=== PATIENT | female | born 1950 | race Caucasian/White ===

== ENCOUNTER 2017-11-21 17:42 | Observation (INO) ==
[2017-11-21] MEDS ORDERED: Nitroglycerin 0.4 MG TAB.SUBL SL ONE (18:25)
[2017-11-21] MEDS ORDERED: Aspirin 81 MG TAB.CHEW PO ONE (18:25)
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
[2017-11-21 18:45] LABS: Basophils % 0.5 %; Eosinophils # 0.2 K/mcL (0.0-0.6); Eosinophils % 2.9 %; Hematocrit 43.4 % (35.3-44.9); Hemoglobin 14.3 g/dL (11.5-15.4); Immature Granulocytes % 0.2 % (0-4); Lymphocytes # 3.8 K/mcL (0.6-4.6); Lymphocytes % 46.3 %; Mean Corpuscular HGB Conc 32.9 g/dL (31.6-35.5); Mean Corpuscular Hemoglobin 28.4 pg (28.0-33.3); Mean Corpuscular Volume 86.3 fL (83.0-100.0); Mean Platelet Volume 10.4 fL (9.4-12.4); Monocytes # 0.6 K/mcL (0.0-1.3); Monocytes % 7.1 %; Neutrophils # 3.5 K/mcL (1.6-8.9); Platelet Count 241 K/mcL (140-400); Red Blood Count 5.03 M/mcL (3.82-4.97)
[2017-11-21 18:51] LABS: Prothrombin Time 10.2 Seconds (9.4-12.1)
[2017-11-21 18:53] LABS: Activated Partial Thrombo Time 30.6 Seconds (26.0-36.0)
[2017-11-21 19:33] LABS: BUN/Creatinine Ratio 16 (6-26); Blood Urea Nitrogen 12 mg/dL (8-23); Calcium 11.7 mg/dL (8.6-10.3); Carbon Dioxide 25 mEq/L (23-29); Chloride 104 mEq/L (98-107); Glucose 100 mg/dL (70-105); Osmolality,Calculated 284 (280-300); Sodium 137 mEq/L (136-145); eGFR For African Americans > 60 (> 60); eGFR For Non-African Americans > 60 (> 60)
--- NOTE | 2017-11-21 20:07 | Emergency Department Note ---
Disposition Clinical Impression: Chest pain Qualifiers: Chest pain type: other chest pain Qualified Code(s): R07.89 - Other chest pain Disposition: Admitted As Inpatient Condition: Good Time of Disposition: 20:41 General Adult HPI - General Chief complaint: ED Chest Pain Stated complaint: CP Time Seen by Provider: 11/21/17 17:44 Source: patient Mode of arrival: ambulatory Limitations: no limitations Nursing Notes Reviewed: Yes - History of Present Illness Pain Scale: 0 - Related Data Home Medications Medication Instructions Recorded Confirmed Aspirin Enteric Coated [Aspirin EC] 81 mg PO DAILY 11/21/17 11/21/17 Calcium Carbonate [Calcium] 600 mg PO DAILY 11/21/17 11/21/17 Cholecalciferol (Vitamin D3) 4,000 unit PO DAILY 11/21/17 11/21/17 [Vitamin D3] Cyanocobalamin (Vitamin B-12) 5,000 mcg PO DAILY 11/21/17 11/21/17 [Vitamin B-12] Glucosamine Sulfate Dipot Chlr 4,000 mg PO DAILY 11/21/17 11/21/17 [Glucosamine] Omeprazole [PriLOSEC] 20 mg PO DAILY PRN 11/21/17 11/21/17 Allergies Allergy/AdvReac Type Severity Reaction Status Date / Time Sulfa (Sulfonamide Allergy Anaphylaxis Verified 10/09/15 09:52 Antibiotics) tetanus and diphtheria Allergy Anaphylaxis Verified 10/09/15 09:52 toxoids [Tetanus&Diphtheria Toxoid] Past Medical History - Past Medical History Medical history: Reports: arthritis, cancer Surgical history: Reports: colectomy Psychiatric history: Reports: anxiety, depression - Social History Smoking Status: Never smoker Alcohol use: Reports: none Drug use: Reports: none Physical Exam - General Limitations: no limitations General appearance: alert, in no apparent distress Course - Reevaluation(s) Reevaluation #1: Patient was signed out to myself and Dr. Cruz from the day team of Dr. Wright and Dr. Javier. Please see their documentation for detailed history and physical exam. Time: 19:00 Vital Signs Temperature 97.5 F L 11/21/17 18:43 Pulse Rate 60 11/21/17 18:43 Respiratory Rate 18 11/21/17 18:43 Blood Pressure 147/88 11/21/17 18:43 O2 Sat by Pulse Oximetry 95 11/21/17 18:43 Temperature 97.5 F L 11/21/17 18:43 Pulse Rate 64 11/21/17 21:07 Respiratory Rate 16 11/21/17 22:22 Blood Pressure 136/86 11/21/17 22:22 O2 Sat by Pulse Oximetry 96 11/21/17 21:07 Oxygen Delivery Oxygen Delivery Room Air Medical Decision Making - MDM Narrative Medical decision making narrative: Due to patient presented with chest pain. Obtained a cardiac workup. Her troponin was negative her EKG showed a sinus bradycardia and the remainder of her laboratory testing was unremarkable. Due to the patient's age and presenting history and feel that the patient will need to be admitted to the hospital for further evaluation and management and ACS rule out. I will consult the hospitalist and they have excepted the patient to her service. The patient will be admitted to the hospital this time for further evaluation and management. - Lab Data Lab results reviewed: Yes I reviewed the patient's lab results. Result diagrams: 11/21/17 17:55 11/21/17 17:55 Lab Results 11/21/17 11/21/17 11/21/17 Range/Units 17:55 17:55 17:55 WBC 8.2 (4.3-11.1) K/mcL RBC 5.03 H (3.82-4.97) M/mcL Hgb 14.3 (11.5-15.4) g/dL Hct 43.4 (35.3-44.9) % MCV 86.3 (83.0-100.0) fL MCH 28.4 (28.0-33.3) pg MCHC 32.9 (31.6-35.5) g/dL RDW 13.0 (11.5-14.5) % Plt Count 241 (140-400) K/mcL MPV 10.4 (9.4-12.4) fL Immature Gran % 0.2 (0-4) % Seg Neutrophils % 43.0 % Lymphocytes % 46.3 % Monocytes % 7.1 % Eosinophils % 2.9 % Basophils % 0.5 % Neutrophils # 3.5 (1.6-8.9) K/mcL Lymphocytes # 3.8 (0.6-4.6) K/mcL Monocytes # 0.6 (0.0-1.3) K/mcL Eosinophils # 0.2 (0.0-0.6) K/mcL Basophils # 0.0 (0.0-0.2) K/mcL PT 10.2 (9.4-12.1) Seconds INR 1.0 APTT 30.6 (26.0-36.0) Seconds Sodium 137 (136-145) mEq/L Potassium 4.0 (3.5-5.1) mEq/L Chloride 104 (98-107) mEq/L Carbon Dioxide 25 (23-29) mEq/L BUN 12 (8-23) mg/dL Creatinine 0.76 (0.60-1.20) mg/dL Est GFR ( Amer) > 60 (> 60) Est GFR (Non-Af Amer) > 60 (> 60) BUN/Creatinine Ratio 16 (6-26) Glucose 100 (70-105) mg/dL Calculated Osmolality 284 (280-300) Calcium 11.7 H (8.6-10.3) mg/dL Troponin I (< 0.04) ng/mL 11/21/17 Range/Units 17:55 WBC (4.3-11.1) K/mcL RBC (3.82-4.97) M/mcL Hgb (11.5-15.4) g/dL Hct (35.3-44.9) % MCV (83.0-100.0) fL MCH (28.0-33.3) pg MCHC (31.6-35.5) g/dL RDW (11.5-14.5) % Plt Count (140-400) K/mcL MPV (9.4-12.4) fL Immature Gran % (0-4) % Seg Neutrophils % % Lymphocytes % % Monocytes % % Eosinophils % % Basophils % % Neutrophils # (1.6-8.9) K/mcL Lymphocytes # (0.6-4.6) K/mcL Monocytes # (0.0-1.3) K/mcL Eosinophils # (0.0-0.6) K/mcL Basophils # (0.0-0.2) K/mcL PT (9.4-12.1) Seconds INR APTT (26.0-36.0) Seconds Sodium (136-145) mEq/L Potassium (3.5-5.1) mEq/L Chloride (98-107) mEq/L Carbon Dioxide (23-29) mEq/L BUN (8-23) mg/dL Creatinine (0.60-1.20) mg/dL Est GFR ( Amer) (> 60) Est GFR (Non-Af Amer) (> 60) BUN/Creatinine Ratio (6-26) Glucose (70-105) mg/dL Calculated Osmolality (280-300) Calcium (8.6-10.3) mg/dL Troponin I < 0.03 (< 0.04) ng/mL - Radiology Data Radiology results reviewed: Yes I reviewed the patient's radiology results. Chest X-Ray 11/21/17 18:25 IMPRESSION: No acute process. D/ / Ronnell Nicole MD / Ronnell Nicole MD Interpreting Provider: Ronnell Nicloe MD - EKG Data EKG #1 EKG attestation: Yes I reviewed and interpreted this EKG. EKG results narrative: EKG showed a sinus bradycardia at a rate of 54 beats for neck, NH interval of 120, QRS duration of 100, QTC of 351 with a normal axis. Attestation Statement - Attestation Attestation: I, Dejuan Cruz MD, personally evaluated this patient and discussed their management with the resident physician. I reviewed the resident's note and agree with the documented findings, medical decision making, and plan of care. This patient was signed out at shift change from Dr. Wright and Dr. Javier. Please refer to their notes for complete details of the history and physical examination. Patient presented with a complaint of some chest pain. She had an episode yesterday and another episode today. The pain was in the chest and radiated up into the left side of the neck and left jaw and to the left shoulder and down the left arm. Also some radiation to the back. At shift change patient is awaiting test results and final disposition. On examination patient is a well-developed well-nourished well-appearing elderly female in no acute distress. She is alert and oriented 3. There is no cyanosis or diaphoresis. Chest is nontender to palpation. Breath sounds are clear and equal bilaterally. Heart regular rate and rhythm. Abdomen soft and nontender with normal bowel sounds. No pedal edema. Labs reviewed. Troponin negative. Chest x-ray negative. No acute changes on EKG. The hospitalist, Dr. Paulino, was consulted and accepted admission of the patient.
[2017-11-21] MEDS ORDERED: Acetaminophen 325 MG TABLET PO PRN (21:05)
[2017-11-21] MEDS ORDERED: Ipratropium/Albuterol Neb 3 ML IH PRN (21:05)
[2017-11-21] MEDS ORDERED: Nitroglycerin 0.4 MG TAB.SUBL SL PRN (21:05)
[2017-11-21] MEDS ORDERED: Naloxone 0.4 MG/ML INJ IVP PRN (21:07)
[2017-11-21] MEDS ORDERED: traMADol 50 MG TABLET PO PRN (21:07)
[2017-11-21] MEDS ORDERED: *HR* OxyCODONE Immed Rel 5 MG TABLET PO PRN (21:07)
--- NOTE | 2017-11-21 21:14 | Internal Med History&Physical ---
Date of Encounter: 11/21/17 Time of Encounter: 21:12 Assessment and Plan (1) Chest pain Current visit: Yes Status: Acute Continue aspirin, nitroglycerin as needed Check lipid panel, consider statin Stress test for the morning, check troponins, telemetry Omeprazole for GI prophylaxis and Lovenox for DVT prophylaxis. The patient will be admitted for observation. Full code. Time spent on this admission 40 minutes Qualifiers: Chest pain type: other chest pain Qualified Code(s): R07.89 - Other chest pain; R07.8 - Other chest pain (2) Hypercalcemia Current visit: Yes Status: Acute Unclear etiology Stop calcium supplements and vitamin D Check albumin and calcium in the morning, can check ionized calcium Start IV fluids, consider checking PTH and further lab work if not improving (3) Valvular disease Current visit: Yes Status: Acute Check an echocardiogram (4) Osteoarthritis Current visit: Yes Status: Acute Qualifiers: Osteoarthritis location: unspecified site Osteoarthritis type: unspecified Qualified Code(s): M19.90 - Unspecified osteoarthritis, unspecified site Internal Medicine - H&P: HPI Chief complaint: Chest pain Admitted From: Emergency Dept History of present illness: Ms. Julien is a 67 year old female with a past medical history of psoriasis, colon cancer 25 years ago, pulmonary leaking valve, who comes to the emergency room complaining of 2 days of left-sided chest pain that started midsternal and radiated to the left shoulder and left side of the jaw, described as 6 out of 10 in intensity, pressure-like that lasted for about 8 hours since 10 AM this morning. Chest x-ray is unremarkable, EKG shows bradycardia. Troponins are negative and the patient is asymptomatic at the moment. She took 2 baby aspirins at home and ibuprofen that did not help with the pain. Denies any symptoms other than shortness of breath and some nausea. Denies having history of hypertension, hyperlipidemia or diabetes. Past Med Surg Social Fam HX - Past Medical History Medical history: arthritis (Osteoarthritis), cancer (Colon cancer 25 years ago status post colectomy), other (Pulmonary valve pathology (leaking valve, unsure) , back pain, basal cell carcinoma excised from her nose) Psychiatric history: anxiety, depression - Past Surgical History Surgical History: colectomy, other (Bladder surgery) - Social History Smoking Status: Never smoker Alcohol use: none Drug use: none - Additional Family History Additional family history: Mother with colon cancer and heart disease Internal Medicine - H&P: Meds 3 Allergy/AdvReac Type Severity Reaction Status Date / Time Sulfa (Sulfonamide Allergy Anaphylaxis Verified 10/09/15 09:52 Antibiotics) tetanus and diphtheria Allergy Anaphylaxis Verified 10/09/15 09:52 toxoids [Tetanus&Diphtheria Toxoid] All Systems PM: A 10-system review of systems was performed and is negative for pertinent findings except as documented above in the HPI. Review of systems: No symptoms at the moment, other systems out of the 10 reviewed for negative - Constitutional Vitals: Temp Pulse Resp BP Pulse Ox 97.5 F L 94 18 126/72 95 11/21/17 18:43 11/21/17 20:21 11/21/17 20:21 11/21/17 20:21 11/21/17 20:21 General appearance: Present: A&O X 3, obese - Head Head exam: Present: atraumatic, normocephalic - Eye Eye exam: Present: PERRL, conjuntiva pink, sclera anicteric Pupils: Present: PERRL - Neck Neck exam general surgery: Present: supple, trachea midline. Absent: lymphadenopathy - Respiratory Respiratory exam: Present: CTAB. Absent: accessory muscle use, rales, rhonchi, wheezes - Cardiovascular Cardiovascular exam: Present: RRR, +S1, +S2. Absent: diastolic murmur, gallop, rubs, systolic murmur - GI/Abdominal GI/Abdominal exam: Present: normal bowel sounds, soft, no peritoneal signs. Absent: distended, tenderness - Extremities Exam Extremities exam: Present: warm, radial pulses palpable and symmetrical. Absent : calf tenderness, cyanotic, pedal edema - Neurological Exam Neurological exam: Present: CN II-XII intact, oriented X3, no focal deficits. Absent: pronater drift, facial droop, speech deficit - Skin Skin exam: Present: dry, intact Internal Med - H&P Results - Labs CBC & Chem 7: 11/21/17 17:55 11/21/17 17:55 Labs: Short CBC 11/21/17 Range/Units 17:55 WBC 8.2 (4.3-11.1) K/mcL Hgb 14.3 (11.5-15.4) g/dL Hct 43.4 (35.3-44.9) % Plt Count 241 (140-400) K/mcL Neutrophils # 3.5 (1.6-8.9) K/mcL BMP 11/21/17 17:55 Sodium 137 Potassium 4.0 Chloride 104 Carbon Dioxide 25 BUN 12 Creatinine 0.76 Glucose 100 Calcium 11.7 H Cardiac Enzymes 11/21/17 Range/Units 17:55 Troponin I < 0.03 (< 0.04) ng/mL - Impressions ITS Impressions Chest X-Ray 11/21/17 18:25 IMPRESSION: No acute process. D/ / Ronnell Nicole MD / Ronnell Nicole MD Interpreting Provider: Ronnell Nicole MD
[2017-11-21] MEDS ORDERED: 0.9 % Sodium Chloride 1,000 ML IVC SCH (21:15)
[2017-11-21] MEDS: *HR* Enoxaparin 40 MG/0.4 ML SYRINGE SQ SCH (23:55)
[2017-11-22 00:59] LABS: VBG Ionized Calcium 1.46 mmol/L (1.15-1.35); VBG PH 7.33 pH Units (7.32-7.42)
[2017-11-22 05:42] LABS: Hematocrit 40.3 % (35.3-44.9); Mean Corpuscular HGB Conc 32.3 g/dL (31.6-35.5); Mean Corpuscular Volume 86.9 fL (83.0-100.0); Mean Platelet Volume 10.3 fL (9.4-12.4); Platelet Count 200 K/mcL (140-400); Red Blood Count 4.64 M/mcL (3.82-4.97)
[2017-11-22 05:48] LABS: BUN/Creatinine Ratio 14 (6-26); Blood Urea Nitrogen 11 mg/dL (8-23); Calcium 10.1 mg/dL (8.6-10.3); Carbon Dioxide 27 mEq/L (23-29); Chloride 109 mEq/L (98-107); Chol/HDL Ratio 4.1 (0-4.9); Cholesterol 187 mg/dL (< 200); Glucose 104 mg/dL (70-105); HDL Cholesterol 46 mg/dL (40-59); LDL Cholesterol,Calculated 109 mg/dL (0-99); Osmolality,Calculated 288 (280-300); Sodium 139 mEq/L (136-145); Triglycerides 162 mg/dL (< 150); eGFR For African Americans > 60 (> 60); eGFR For Non-African Americans > 60 (> 60)
[2017-11-22] MEDS: *HR* Enoxaparin 40 MG/0.4 ML SYRINGE SQ SCH (05:53)
[2017-11-22] MEDS ORDERED: Regadenoson 0.4 MG/5 ML SYRINGE IVP ONE (06:32)
[2017-11-22] MEDS ORDERED: Aspirin Enteric Coated 325 MG Tablet PO SCH (09:00)
--- NOTE | 2017-11-22 13:14 | Discharge Summary ---
Date of Encounter: 11/22/17 Time of Encounter: 13:10 - Discharge Diagnosis (1) Chest pain Priority: Primary Status: Acute Qualifiers: Chest pain type: other chest pain Qualified Code(s): R07.89 - Other chest pain; R07.8 - Other chest pain (2) Hypercalcemia Priority: Secondary Status: Acute (3) Valvular disease Priority: Secondary Status: Acute (4) Osteoarthritis Priority: Secondary Status: Acute Qualifiers: Osteoarthritis location: unspecified site Osteoarthritis type: unspecified Qualified Code(s): M19.90 - Unspecified osteoarthritis, unspecified site - Discharge Medications Home Medications: Aspirin Enteric Coated [Aspirin EC] 81 mg PO DAILY 11/21/17 [History] Cyanocobalamin (Vitamin B-12) [Vitamin B-12] 5,000 mcg PO DAILY 11/21/17 [ History] Glucosamine Sulfate Dipot Chlr [Glucosamine] 4,000 mg PO DAILY 11/21/17 [History ] Omeprazole [PriLOSEC] 20 mg PO DAILY PRN 11/21/17 [History] Allergies/Adverse Reactions: 3 Allergy/AdvReac Type Severity Reaction Status Date / Time Sulfa (Sulfonamide Allergy Anaphylaxis Verified 10/09/15 09:52 Antibiotics) tetanus and diphtheria Allergy Anaphylaxis Verified 10/09/15 09:52 toxoids [Tetanus&Diphtheria Toxoid] Date of admission: 11/21/17 22:09 Primary care physician: Regan Martin, - Patient Status Disposition: Home, Self-Care Condition: Good - Discharge Instructions Instructions: Chest Pain (DC), Influenza Vaccine (GEN), Hypercalcemia (DC) Follow Up With: Regan Martin, [Primary Care Provider] - 11/29/17 1:45 pm Additional Instructions: Follow-up with primary care physician within the next 7 days. Stop vitamin D and calcium supplements. Can start fish oil at home 1 capsule twice a day to decrease triglycerides, avoid carbohydrates - Diet and Activity Activity: increase activity as tolerated Diet: low fat, low cholesterol Hospital course: Ms. Julien is a 67 year old female with a past medical history of psoriasis, Osteoarthritis), cancer (Colon cancer 25 years ago status post colectomy), other (Pulmonary valve pathology (leaking valve, unsure), back pain, basal cell carcinoma excised from her nose who came to the emergency room complaining of 2 days of left-sided chest pain that started midsternal and radiated to the left shoulder and left side of the jaw, described as 6 out of 10 in intensity, pressure-like that lasted for about 8 hours since 10 AM this morning. Chest x-ray is unremarkable, EKG showed bradycardia. Troponins are negative and the patient is asymptomatic at the moment. She took 2 baby aspirins at home and ibuprofen that did not help with the pain. Denies any symptoms other than shortness of breath and some nausea. Denies having history of hypertension , hyperlipidemia or diabetes. Stress test showed appearance of perfusion defect that might be percent artifact involving the mid distal anterior wall. Pharmacological stress EKG was negative for ischemia. EF more than 70% The patient presented with hypercalcemia of 11.7 and came down to 10.1. Venous denies passing is 1.46, likely secondary to vitamin D and calcium supplements. The patient was advised to stop both and follow up with her primary care physician. Vitamin D level is pending. Patient can follow up with cardiology if the symptoms recur. Echocardiogram showed: Ejection fraction of 60%, with mild diastolic dysfunction and no wall motion abnormalities - Time Spent with Patient Total time spent providing and/or coordinating discharge services: Greater than 30 minutes (40 min) - Constitutional Vitals: Temp Pulse Resp BP Pulse Ox 97.4 F L 68 17 130/68 94 11/22/17 10:35 11/22/17 10:35 11/22/17 10:35 11/22/17 10:35 11/22/17 10:35 General appearance: Present: A&O X 3, obese - Head Head exam: Present: atraumatic, normocephalic - Eye Eye exam: Present: PERRL, conjuntiva pink, sclera anicteric Pupils: Present: PERRL - Neck Neck exam general surgery: Present: supple, trachea midline. Absent: lymphadenopathy - Respiratory Respiratory exam: Present: CTAB. Absent: accessory muscle use, rales, rhonchi, wheezes - Cardiovascular Cardiovascular exam: Present: RRR, +S1, +S2. Absent: diastolic murmur, gallop, rubs, systolic murmur - GI/Abdominal GI/Abdominal exam: Present: normal bowel sounds, soft, no peritoneal signs. Absent: distended, tenderness - Extremities Exam Extremities exam: Present: warm, radial pulses palpable and symmetrical. Absent : calf tenderness, cyanotic, pedal edema - Neurological Exam Neurological exam: Present: CN II-XII intact, oriented X3, no focal deficits. Absent: pronater drift, facial droop, speech deficit - Skin Skin exam: Present: dry, intact
[2017-11-22 14:54] VITALS: BP 121/66
--- NOTE | 2017-11-22 19:39 | Electrocardiograph Report ---
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
== END 2017-11-22 16:50 | disposition home or self-care (01) ==
LOC: EMEROO 17:42 → 3BNU 17:42
PROVIDERS: ADMIT Internal Medicine; ATTEND Registered Nurse

== ENCOUNTER 2019-05-16 08:10 | Observation (INO) ==
[2019-05-16] MEDS ORDERED: Aspirin 81 MG TAB.CHEW PO ONE (08:42)
[2019-05-16 09:12] LABS: Basophils # 0.1 K/mcL (0.0-0.2); Basophils % 0.9 %; Eosinophils # 0.2 K/mcL (0.0-0.6); Eosinophils % 3.1 %; Hematocrit 43.8 % (35.3-44.9); Hemoglobin 14.3 g/dL (11.5-15.4); Immature Granulocytes % 0.3 % (0-4); Lymphocytes % 41.1 %; Mean Corpuscular HGB Conc 32.6 g/dL (31.6-35.5); Mean Corpuscular Hemoglobin 28.5 pg (28.0-33.3); Mean Corpuscular Volume 87.4 fL (83.0-100.0); Mean Platelet Volume 10.7 fL (9.4-12.4); Monocytes # 0.6 K/mcL (0.0-1.3); Monocytes % 7.5 %; Neutrophils # 3.5 K/mcL (1.6-8.9); Platelet Count 202 K/mcL (140-400); Red Blood Count 5.01 M/mcL (3.82-4.97); Segmented Neutrophils % 47.1 %; White Blood Count 7.4 K/mcL (4.3-11.1)
[2019-05-16 09:36] LABS: BUN/Creatinine Ratio 18 (6-26); Blood Urea Nitrogen 15 mg/dL (8-23); Calcium 10.6 mg/dL (8.6-10.3); Carbon Dioxide 25 mEq/L (23-29); Chloride 104 mEq/L (98-107); Glucose 116 mg/dL (70-105); Osmolality,Calculated 292 (280-300); Potassium 4.2 mEq/L (3.5-5.1); Sodium 140 mEq/L (136-145); Troponin I < 0.03 ng/mL (< 0.04); eGFR For African Americans > 60 (> 60); eGFR For Non-African Americans > 60 (> 60)
--- NOTE | 2019-05-16 09:48 | Emergency Department Note ---
Disposition Clinical Impression: Unstable angina pectoris Disposition: Admitted As Inpatient Condition: Fair Time of Disposition: 10:40 Chest Pain HPI - General Chief Complaint: ED Chest Pain Stated Complaint: CP,LAKISHA Time Seen by Provider: 05/16/19 08:33 Source: patient Mode of arrival: ambulatory Limitations: no limitations Vital Signs Reviewed: Yes Nursing Notes Reviewed: Yes - History of Present Illness HPI Narrative: 68-year-old female otherwise healthy no history of hypertension diabetes no smoking presents to the emergency department with chest pain that is radiating up into her neck. Says it is a pressure in the center of her chest going up into her neck describing it as 6 out of 10 worse whenever she exerts herself or moves she also has shortness of breath the same time. Said that she has felt dizzy and almost like she was in a pass out but has not had any syncopal events. Said she has been nauseous but has had no vomiting. This been going on for approximately 1 day continue to get worse and she is does not feel any better. She is worried she may be having some heart problems. Patient is no cardiac history. Otherwise no other complaints at this time. Severity scale (1-10): 3 - Related Data Home Medications Medication Instructions Recorded Confirmed Aspirin Enteric Coated [Aspirin EC] 81 mg PO DAILY 11/21/17 05/16/19 Omeprazole [PriLOSEC] 20 mg PO DAILY PRN 11/21/17 05/16/19 Allergies Allergy/AdvReac Type Severity Reaction Status Date / Time Sulfa (Sulfonamide Allergy Anaphylaxis Verified 01/30/19 21:16 Antibiotics) tetanus and diphtheria Allergy Anaphylaxis Verified 01/30/19 21:16 toxoids [Tetanus&Diphtheria Toxoid] All systems ED: reviewed and negative except as stated. Review of Systems: As Per HPI Chest Pain PMH - Past Medical History Medical history: Reports: non-contributory, arthritis, cancer Surgical history: Reports: non-contributory, other Psychiatric history: Reports: anxiety, depression - Social History Smoking Status: Never smoker Alcohol use: Reports: none Drug use: Reports: none Physical Exam - General Limitations: no limitations General appearance: alert, in no apparent distress - Head Head exam: atraumatic, normocephalic, normal inspection - Eye Eye exam: Present: normal appearance, PERRL, EOMI - ENT ENT exam: normal exam, normal oropharynx, mucous membranes moist - Neck Neck exam: Present: normal inspection, full ROM, trachea midline - Chest Chest inspection: Present: normal inspection, symmetric chest wall rise - Respiratory Respiratory exam: Present: normal lung sounds bilaterally - Cardiovascular Cardiovascular exam: Present: regular rate, normal rhythm, normal heart sounds - Abdominal Exam Abdominal exam: Present: soft, Non-Tender, normal bowel sounds. Absent: tenderness, distention, guarding, rebound, rigidity - Extremities Exam Extremities exam: Present: normal inspection, full ROM. Absent: tenderness, pedal edema - Back Exam Back exam: Present: normal inspection, full ROM. Absent: tenderness, CVA tenderness (R), CVA tenderness (L) - Neurological Exam Neurological exam: Present: alert, oriented X3 - Skin Skin exam: Present: warm, dry, intact, normal color Course Vital Signs Temperature 97.8 F 05/16/19 08:13 Pulse Rate 65 05/16/19 08:13 Respiratory Rate 16 05/16/19 08:13 Blood Pressure 191/82 05/16/19 08:13 O2 Sat by Pulse Oximetry 97 05/16/19 08:13 Temperature 97.8 F 05/16/19 08:13 Pulse Rate 57 05/16/19 10:33 Respiratory Rate 18 05/16/19 10:33 Blood Pressure 134/65 05/16/19 10:33 O2 Sat by Pulse Oximetry 97 05/16/19 10:33 Oxygen Delivery Oxygen Delivery Room Air Chest Pain - MDM Narrative Medical decision making narrative: Labs all came back normal troponin was negative EKG had no acute findings. Chest x-ray also had no acute findings. The troponin was negative did give patient aspirin nitroglycerin. Patient has a heart score of 5. Due to her story a worries because patient needs to be evaluated for possible cardiac evaluation for possible ACS. D-dimer came back negative there is a likelihood of this being a pulmonary embolism at this time. Patient will be admitted to the hospitalist for further evaluation. I spoke with Dr. Carballo who agreed to admit the patient to their service. Patient admitted in stable condition. Chest X-Ray 05/16/19 08:42 IMPRESSION: No acute cardiopulmonary disease. D/ / 05/16/2019 09:11:02 Gavin De Leon MD / Tammy Ritter Interpreting Provider: Gavin De Leon MD - Medical Records Medical records reviewed: Yes I reviewed the patient's medical records. - Lab Data Lab results reviewed: Yes I reviewed the patient's lab results. Result diagrams: 05/16/19 08:32 05/16/19 08:32 Lab Results 05/16/19 05/16/19 05/16/19 Range/Units 08:32 08:32 08:32 WBC 7.4 (4.3-11.1) K/mcL RBC 5.01 H (3.82-4.97) M/mcL Hgb 14.3 (11.5-15.4) g/dL Hct 43.8 (35.3-44.9) % MCV 87.4 (83.0-100.0) fL MCH 28.5 (28.0-33.3) pg MCHC 32.6 (31.6-35.5) g/dL RDW 13.0 (11.5-14.5) % Plt Count 202 (140-400) K/mcL MPV 10.7 (9.4-12.4) fL Immature Gran % 0.3 (0-4) % Seg Neutrophils % 47.1 % Lymphocytes % 41.1 % Monocytes % 7.5 % Eosinophils % 3.1 % Basophils % 0.9 % Neutrophils # 3.5 (1.6-8.9) K/mcL Lymphocytes # 3.0 (0.6-4.6) K/mcL Monocytes # 0.6 (0.0-1.3) K/mcL Eosinophils # 0.2 (0.0-0.6) K/mcL Basophils # 0.1 (0.0-0.2) K/mcL PT 11.0 (9.4-12.1) Seconds INR 1.0 D-Dimer 246 (0-500) ng/mLFEU Sodium 140 (136-145) mEq/L Potassium 4.2 (3.5-5.1) mEq/L Chloride 104 (98-107) mEq/L Carbon Dioxide 25 (23-29) mEq/L BUN 15 (8-23) mg/dL Creatinine 0.82 (0.60-1.20) mg/dL Est GFR ( Amer) > 60 (> 60) Est GFR (Non-Af Amer) > 60 (> 60) BUN/Creatinine Ratio 18 (6-26) Glucose 116 H (70-105) mg/dL Calculated Osmolality 292 (280-300) Calcium 10.6 H (8.6-10.3) mg/dL Troponin I < 0.03 (< 0.04) ng/mL - Radiology Data Radiology results reviewed: Yes I reviewed the patient's radiology results. - EKG Data EKG attestation: Yes I reviewed and interpreted this EKG. Heart Score - Score History: Highly Suspicious EKG: Normal Age: Greater than 65 Risk Factors: 1-2 risk factors Troponin: Less than normal limit HEART Score Total: 5 Attestation Statement - Attestation Attestation: I, Pierre Gutierrez, examined this patient and my medical decision-making was reviewed with the ISSUER/PA/Advanced Practice Nurse/Resident Physician. I agree with the documented findings, disposition and treatment plan as described except to the extent set forth below. 68-year-old female presents emergency Department with concerns of chest pain and difficulty breathing. Patient states symptoms have been present over the past 24-48 hours. She describes it as a pressure in the center of her chest that radiates to her left shoulder and left jaw. She reports associated diaphoresis and nausea and lightheadedness. He should not states she has a history of previous cardiac catheterization many years ago which showed moderate disease but she did not receive cardiac stenting at that time. Patient denies fever, c hills, syncope, abdominal pain, diarrhea. I reviewed the EKG with the resident and agree with the interpretation. Initial troponin negative. Patient will be admitted to the hospitalist for further care and evaluation.
[2019-05-16] MEDS: Nitroglycerin 0.4 MG TAB.SUBL SL PRN ×3 (10:19→10:34)
[2019-05-16] MEDS ORDERED: Naloxone 0.4 MG/ML INJ IVP PRN (10:42)
[2019-05-16] MEDS ORDERED: traMADol 50 MG TABLET PO PRN (10:42)
--- NOTE | 2019-05-16 13:07 | Internal Med History&Physical ---
Date of Encounter: 05/16/19 Time of Encounter: 12:59 Internal Medicine - H&P: HPI Chief complaint: chest discomfort Admitted From: Home Plans for Post Hospital Care: Home History of present illness: Ms. Julien is a 68 year old female past medical history of psoriasis, Osteoarthritis), cancer (Colon cancer 25 years ago status post colectomy), back pain, basal cell carcinoma excised from her nose. Who came to the emergency room complaining of 2 days of intermittent retro-sternal 5/10 chest pain radiating to the left shoulder and left side of the jaw associated with tingling of the left upper extremities. Denies aggravating or alleviating factors. Reported last night while she was sleeping started having the same discomfort and decided to come to the ED. Reports the pain was relieved by some medications she got in the ED. Patient also reported having one episode of dizziness which she described as the room spinning around yesterday, associated with nausea, but no vomiting episodes. She also reported tingling on the left upper extremity, but denies focal weakness or change in her speech. denies abdominal pain, GERD like symptoms. Past Med Surg Social Fam HX - Past Medical History Medical history: non-contributory, arthritis, cancer Psychiatric history: anxiety, depression - Past Surgical History Surgical History: non-contributory, other Additional surgical history: colon mass removed, bladder lift - Social History Smoking Status: Never smoker Smokeless Tobacco Status: No Alcohol use: none Drug use: none - Family History Mother Living Status: Hx Family Cardiac Disorders: Yes Hx Family Cancer: Yes (colon) Father Living Status: Internal Medicine - H&P: Meds Aspirin Enteric Coated [Aspirin EC] 81 mg PO DAILY 11/21/17 [History] Omeprazole [PriLOSEC] 20 mg PO DAILY PRN 11/21/17 [History] Allergy/AdvReac Type Severity Reaction Status Date / Time Sulfa (Sulfonamide Allergy Anaphylaxis Verified 01/30/19 21:16 Antibiotics) tetanus and diphtheria Allergy Anaphylaxis Verified 01/30/19 21:16 toxoids [Tetanus&Diphtheria Toxoid] All Systems PM: A 10-system review of systems was performed and is negative for pertinent findings except as documented above in the HPI. - Constitutional Constitutional: no chills, no fever(s), no weakness - EENT Eyes: no change in vision, no pain - Cardiovascular Cardiovascular ROS IM: chest pain, no dyspnea on exertion, no irregular heart rhythm, no lightheadedness, no orthopnea, no palpitations, no paroxysmal nocturnal dyspnea - Respiratory Respiratory: no cough - Gastrointestinal Gastrointestinal: nausea, no abdominal pain, no vomiting - Genitourinary Genitourinary: no dysuria, no urinary urgency - Musculoskeletal Musculoskeletal ROS IM: no arthralgias - Integumentary Integumentary IM: no erythema - Neurological Neurological ROS: no headache(s) - Psychiatric Psychiatric: no hallucinations, no irritability - Endocrine Endocrine IM: no cold intolerance, no excessive sweating - Hematologic/Lymphatic Hematologic/Lymphatic: no lymphadenopathy - Allergic/Immunologic Allergic/Immunologic: no GI upset with certain foods - Constitutional Vitals: Temp Pulse Resp BP Pulse Ox 98.2 F 62 16 165/68 99 05/16/19 11:32 05/16/19 11:32 05/16/19 11:32 05/16/19 11:32 05/16/19 11:32 Exam: Vitals: Reviewed. General: Alert and oriented x4. In no distress Cardiovascular: RRR, normal S1 & S2, no rubs, murmurs or gallops. Lungs: CTA b/l, no wheezes or crackles. Abdomen: Soft, non-tender, no rigidity. Extremities: No edema. Strength is 5/5 in the upper and lower extr Neurological: CN II-XII intact. No focal neurological deficits. Rest of the physical exam is non contributory Internal Med - H&P Results - Labs CBC & Chem 7: 05/16/19 08:32 05/16/19 08:32 Labs: Short CBC 05/16/19 Range/Units 08:32 WBC 7.4 (4.3-11.1) K/mcL Hgb 14.3 (11.5-15.4) g/dL Hct 43.8 (35.3-44.9) % Plt Count 202 (140-400) K/mcL Neutrophils # 3.5 (1.6-8.9) K/mcL BMP 05/16/19 08:32 Sodium 140 Potassium 4.2 Chloride 104 Carbon Dioxide 25 BUN 15 Creatinine 0.82 Glucose 116 H Calcium 10.6 H Cardiac Enzymes 05/16/19 05/16/19 Range/Units 08:32 10:55 Troponin I < 0.03 < 0.03 (< 0.04) ng/mL - Impressions ITS Impressions Chest X-Ray 05/16/19 08:42 IMPRESSION: No acute cardiopulmonary disease. D/ / 05/16/2019 09:11:02 Gavin De Leon MD / Tammy Ritter Interpreting Provider: Gavin De Leon MD - Diagnostic Studies Chest x-ray Status: image reviewed by me (no acute findings) - Assessment and Plan (1) Chest pain Current Visit: No Status: Acute Assessment and plan: patient presenting with chest pain, radiating to her jaw and associated with nausea. Plan Serial troponin EKG Nitroglycerin 0.5 sublingual 3 every 15 minute when necessary Aspirin 81 mg by mouth daily Telemetry monitoring Patient would benefit from inpatient vs outpatient Cardiology consult ELISEO and stress test ordered. Qualifiers: Chest pain type: other chest pain Qualified Code(s): R07.89 - Other chest pain; R07.8 - Other chest pain (2) DVT prophylaxis Current Visit: Yes Status: Acute Assessment and plan: started on heparin subQ (3) Hypercalcemia Current Visit: No Status: Acute Assessment and plan: unclear etiology. will start patient on gentle hydration. - Time Spent With Patient Total time spent is greater than 50% in coordination of care (as documented) at patient's floor/unit and/or counseling patient: Greater than 35 minutes (40)
[2019-05-16] MEDS: *HR* Heparin 5,000 UNIT/ML VIAL SQ SCH ×2 (13:14→21:11)
[2019-05-16] MEDS: Aspirin Enteric Coated 81 MG Tablet PO SCH (13:15)
[2019-05-16] MEDS ORDERED: Perflutren Lipid Microsphere 1.3 ML in 0.9 % Sodium Chloride 8.7 ML IVP ONE (19:10)
[2019-05-17] MEDS ORDERED: Regadenoson 0.4 MG/5 ML SYRINGE IVP ONE (06:31)
[2019-05-17] MEDS: *HR* Heparin 5,000 UNIT/ML VIAL SQ SCH ×3 (06:39→20:37)
[2019-05-17 07:00] LABS: Basophils # 0.1 K/mcL (0.0-0.2); Basophils % 0.7 %; Eosinophils # 0.2 K/mcL (0.0-0.6); Eosinophils % 2.9 %; Hematocrit 45.9 % (35.3-44.9); Hemoglobin 14.9 g/dL (11.5-15.4); Immature Granulocytes % 0.5 % (0-4); Lymphocytes # 3.6 K/mcL (0.6-4.6); Lymphocytes % 44.7 %; Mean Corpuscular HGB Conc 32.5 g/dL (31.6-35.5); Mean Corpuscular Hemoglobin 28.9 pg (28.0-33.3); Mean Platelet Volume 10.6 fL (9.4-12.4); Monocytes # 0.5 K/mcL (0.0-1.3); Monocytes % 5.9 %; Neutrophils # 3.7 K/mcL (1.6-8.9); Platelet Count 235 K/mcL (140-400); Red Blood Count 5.16 M/mcL (3.82-4.97); Red Cell Distribution Width 13.1 % (11.5-14.5); Segmented Neutrophils % 45.3 %; White Blood Count 8.1 K/mcL (4.3-11.1)
[2019-05-17 07:27] LABS: BUN/Creatinine Ratio 15 (6-26); Blood Urea Nitrogen 13 mg/dL (8-23); Calcium 10.5 mg/dL (8.6-10.3); Carbon Dioxide 25 mEq/L (23-29); Chloride 101 mEq/L (98-107); Cholesterol 227 mg/dL (< 200); Glucose 115 mg/dL (70-105); Magnesium 2.5 mg/dL (1.6-2.6); Osmolality,Calculated 299 (280-300); Phosphorous 3.4 mg/dL (2.7-4.5); Potassium 4.3 mEq/L (3.5-5.1); Sodium 144 mEq/L (136-145); Triglycerides 179 mg/dL (< 150); eGFR For African Americans > 60 (> 60); eGFR For Non-African Americans > 60 (> 60)
[2019-05-17 08:28] LABS: Chol/HDL Ratio 4.3 (0-4.9); HDL Cholesterol 53 mg/dL (40-59); LDL Cholesterol,Calculated 138 mg/dL (0-99)
[2019-05-17] MEDS: Aspirin Enteric Coated 81 MG Tablet PO SCH (09:48)
[2019-05-17 11:02] LABS: C-Reactive Protein < 5 mg/L (Less than 10)
--- NOTE | 2019-05-17 11:04 | Internal Med Progress Note ---
Hospitalist Progress Note - Encounter Date of Encounter: 05/17/19 Time of Encounter: 11:02 - Subjective Interval History: Ms. Julien is a 68 year old female past medical history of psoriasis, Osteoarthritis, cancer (Colon cancer 25 years ago status post colectomy), back pain, basal cell carcinoma excised from her nose who came to the emergency room complaining of 2 days of intermittent retro-sternal 5/10 chest pain radiating to the left shoulder and left side of the jaw associated with tingling of the left upper extremities. Patient seen and examined in the room., She reported chest pain has resolved after taking nitroglycerin. Currently she reported absence of shortness of breath, cough, sputum production, palpitation, lightheadedness, and the syncope. - Exam Vitals: Temp Pulse Resp BP Pulse Ox 97.9 F 65 14 152/78 95 05/17/19 06:26 05/17/19 06:26 05/17/19 06:26 05/17/19 06:26 05/17/19 06:26 Exam: Vitals: Reviewed. General: Alert and oriented x4. In no distress Cardiovascular: RRR, normal S1 & S2, no rubs, murmurs or gallops. Lungs: CTA b/l, no wheezes or crackles. Abdomen: Soft, non-tender, no rigidity. Extremities: No edema. Strength is 5/5 in the upper and lower extr Neurological: CN II-XII intact. No focal neurological deficits. Rest of the physical exam is non contributory - Assessment and Plan (1) Chest pain Current Visit: No Status: Acute Assessment and Plan: 05/16 patient presenting with chest pain, radiating to her jaw and associated with nausea. Plan Serial troponin EKG Nitroglycerin 0.5 sublingual 3 every 15 minute when necessary Aspirin 81 mg by mouth daily Telemetry monitoring Patient would benefit from inpatient vs outpatient Cardiology consult ELISEO and stress test ordered. 05/17 Patient reported resolution of chest pain after ingestion of nitroglycerin. Serial troponin was negative, EKG has no acute ST-T change, overnight telemetry chest and was reviewed, there is no acute ST-T changes as well. Echocardiogram and a stress test completed, pending results. (2) Hypercalcemia Current Visit: No Status: Acute Assessment and Plan: unclear etiology. Hypocalcemia symptoms chronic which was recorded in October 2017. She also had elevated vitamin D level back in 2018. We will start workup for hyperglycemia which will include TSH, PTH, PTH related peptide, repeat a vitamin D level, and the thyroid ultrasound. We will continue IV hydration currently, continue monitoring calcium level. (3) DVT prophylaxis Current Visit: Yes Status: Acute Assessment and Plan: started on heparin subQ - Time Spent with Patient Total time spent is greater than 50% in coordination of care (as documented) at patient's floor/unit and/or counseling patient: Greater than 35 minutes Plan of Care Discussed with: patient Internal Medicine: Result - Labs CBC & Chem 7: 05/17/19 05:56 05/17/19 05:56 Labs: Short CBC 05/17/19 Range/Units 05:56 WBC 8.1 (4.3-11.1) K/mcL Hgb 14.9 (11.5-15.4) g/dL Hct 45.9 H (35.3-44.9) % Plt Count 235 (140-400) K/mcL Neutrophils # 3.7 (1.6-8.9) K/mcL BMP 05/17/19 05:56 Sodium 144 Potassium 4.3 Chloride 101 Carbon Dioxide 25 BUN 13 Creatinine 0.86 Glucose 115 H Calcium 10.5 H Cardiac Enzymes 05/16/19 05/16/19 05/16/19 Range/Units 10:55 16:20 22:22 Troponin I < 0.03 < 0.03 < 0.03 (< 0.04) ng/mL - ABG Interpretation ABG results: PT/INR, D-dimer PT 11.0 Seconds (9.4-12.1) 05/16/19 08:32 D-Dimer 246 ng/mLFEU (0-500) 05/16/19 08:32 - Impressions Impressions Echocardiogram 05/16/19 10:44 Impressions: LVEF 60%. Mild left ventricular diastolic dysfunction. Normal right ventricular structure and function. Mild tricuspid regurgitation. No pulmonary hypertension. Left Ventricular Wall Motion: Rest Echo Findings All wall segments showed normal motion. Findings: Study Quality * Technically adequate exam. ECG Findings * Normal sinus rhythm. Left Ventricle * LVEF 60%. * Normal LV chamber size, wall thickness and function. * Mild left ventricular diastolic dysfunction. Right Ventricle * Normal right ventricular structure and function. Left Atrium * Normal left atrial size. Right Atrium * Normal right atrial size. Aortic Valve * No aortic regurgitation. * Trileaflet aortic valve. * No aortic stenosis. Mitral Valve * No mitral regurgitation. * Normal mitral valve structure. * No mitral stenosis. Tricuspid Valve * Tricuspid valve not well visualized. * Mild tricuspid regurgitation. * Estimated RA pressure is 3 mmHg. * Estimated RVSP is 31 mmHg. * No pulmonary hypertension. Pulmonic Valve * Pulmonic valve is not well visualized. * No pulmonic stenosis. * No pulmonic regurgitation. Pulmonary Artery * Pulmonary artery not well visualized. Aorta * Normally sized aortic root. Pericardium * There is no pericardial effusion present. Interatrial Septum * Interatrial septum not well evaluated. IVC * Normal IVC dimensions and inspiratory collapse. Consult Discharge Plan - Plan Referrals: Regan Martin DO [Primary Care Provider] - 05/24/19 8:00 am (1) Chest pain Qualifiers: Chest pain type: other chest pain Qualified Code(s): R07.89 - Other chest pain; R07.8 - Other chest pain
[2019-05-17 11:15] LABS: Thyroid Stimulating Hormone 2.201 mcIU/mL (0.340-5.600)
--- NOTE | 2019-05-17 13:29 | Electrocardiograph Report ---
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
[2019-05-18 04:48] LABS: BUN/Creatinine Ratio 19 (6-26); Blood Urea Nitrogen 16 mg/dL (8-23); Calcium 10.5 mg/dL (8.6-10.3); Carbon Dioxide 24 mEq/L (23-29); Chloride 107 mEq/L (98-107); Glucose 126 mg/dL (70-105); Osmolality,Calculated 289 (280-300); Potassium 3.8 mEq/L (3.5-5.1); Sodium 138 mEq/L (136-145); eGFR For African Americans > 60 (> 60); eGFR For Non-African Americans > 60 (> 60)
[2019-05-18] MEDS: *HR* Heparin 5,000 UNIT/ML VIAL SQ SCH (05:26)
[2019-05-18 07:40] VITALS: BP 117/78
--- NOTE | 2019-05-18 09:07 | Discharge Summary ---
- NOTES TO OUTPATIENT PROVIDER Notes to Outpatient Provider: f/u with endocrinology within a month. f/u with PCP within a month. Orders not resulted at time of discharge: Pending orders 05/17/19 07:30 NM monique perf SPECT multi [NM] Routine 05/17/19 10:24 Parathormone Related Peptide Routine Vitamin D-1,25(reference test) Routine Date of Encounter: 05/18/19 Time of Encounter: 09:05 - Discharge Diagnosis (1) Chest pain Priority: Primary Status: Acute Qualifiers: Chest pain type: other chest pain Qualified Code(s): R07.89 - Other chest pain; R07.8 - Other chest pain (2) Hypercalcemia Priority: Primary Status: Acute (3) Primary hyperparathyroidism Priority: Primary Status: Acute (4) DVT prophylaxis Priority: Primary Status: Acute Hospital course: Ms. Julien is a 68 year old female past medical history of psoriasis, Osteoarthritis), cancer (Colon cancer 25 years ago status post colectomy), back pain, basal cell carcinoma excised from her nose, who came to the emergency room complaining of 2 days of intermittent retro-sternal 5/10 chest pain radiating to the left shoulder and left side of the jaw associated with tingling of the left upper extremities. Denies aggravating or alleviating factors. Reported last night while she was sleeping started having the same discomfort and decided to come to the ED. Reports the pain was relieved by some medications she got in the ED. Patient also reported having one episode of dizziness which she described as the room spinning around yesterday, associated with nausea, but no vomiting episodes. She also reported tingling on the left upper extremity, but denies focal weakness or change in her speech. denies abdominal pain, GERD like symptoms. Serial troponin was negative, EKG has no acute ST-T change, telemetry tracing was reviewed which showed no acute ischemic change. Patient underwent a stress test which was also negative for ischemia or infarct. Her lab test revealed elevated calcium level, vitamin D and PTH level. Ultrasound of her thyroid no nodule or mass. Primary hyper-parathyroidism was diagnosed, patient was instructed to and maintain well hydration, take Sensipar as prescribed, follow up with PCP and endocrinology as scheduled. On the discharge today, patient has no chest pain, her vital signs were stable, as were labs. She is discharged home today. Discharge discussed with: patient Time spent discussing smoking cessation with patient: more than 10 minutes - Time Spent with Patient Total time spent providing and/or coordinating discharge services: Time spent: Greater than 30 minutes - Discharge Medications Prescriptions: New Atorvastatin [Lipitor] 40 mg PO HS #30 tablet Cinacalcet [Sensipar] 30 mg PO DAILY #30 tablet Continued Aspirin Enteric Coated [Aspirin EC] 81 mg PO DAILY Omeprazole [PriLOSEC] 20 mg PO QAM PRN PRN Reason: Heartburn Mv,Ca,Min/Folic Acid/Vit K1 [One-A-Day Women's 50 Plus Tab] 1 tab PO QAM Home Medications: Aspirin Enteric Coated [Aspirin EC] 81 mg PO DAILY 11/21/17 [History] Omeprazole [PriLOSEC] 20 mg PO QAM PRN 11/21/17 [History] Mv,Ca,Min/Folic Acid/Vit K1 [One-A-Day Women's 50 Plus Tab] 1 tab PO QAM 05/17/19 [History] Atorvastatin [Lipitor] 40 mg PO HS #30 tablet 05/18/19 [Rx] Cinacalcet [Sensipar] 30 mg PO DAILY #30 tablet 05/18/19 [Rx] Allergies/Adverse Reactions: Allergy/AdvReac Type Severity Reaction Status Date / Time Sulfa (Sulfonamide Allergy Anaphylaxis Verified 05/17/19 14:16 Antibiotics) tetanus and diphtheria Allergy Anaphylaxis Verified 05/17/19 14:16 toxoids [Tetanus&Diphtheria Toxoid] Date of admission: 05/16/19 10:54 Primary care physician: Regan Martin DO Anticipated date of discharge: 05/18/19 - Constitutional Vitals: Temp Pulse Resp BP Pulse Ox 97.6 F 54 16 117/78 95 05/18/19 07:39 05/18/19 07:39 05/18/19 07:39 05/18/19 07:39 05/18/19 07:39 General appearance: Present: A&O X 3 Exam: PHYSICAL EXAMINATION: GENERAL APPEARANCE: The patient is alert, oriented and in no acute distress. HEENT: Head is normocephalic. The sinuses are nontender. Pupils are equal and reactive. The nares are patent. Oropharynx clear without lesions. NECK: Supple without lymphadenopathy. HEART: Regular rate and rhythm. LUNGS: No crackles or wheezes are heard. ABDOMEN: Soft, nontender, nondistended with good bowel sounds heard. Inguinal area is normal. EXTREMITIES: Without cyanosis, clubbing or edema. NEUROLOGICAL: Gross nonfocal. SKIN: Warm and dry without any rash. - Patient Status Disposition: Home, Self-Care Condition: Fair Functional capacity at discharge: independent ambulation Overall status at discharge: patient is progressing back to baseline - Discharge Instructions Follow Up With: Regan Martin DO [Primary Care Provider] - 05/24/19 8:00 am - Diet and Activity Activity: increase activity as tolerated Diet: low fat, low cholesterol, low salt diet
[2019-05-18] MEDS: Aspirin Enteric Coated 81 MG Tablet PO SCH (09:51)
== END 2019-05-18 11:16 | disposition home or self-care (01) ==
LOC: 3BNU 08:10 → EMEROOARM 08:10 → 3BNU 11:20
PROVIDERS: ADMIT Internal Medicine; ATTEND Internal Medicine